=== PATIENT | male | born 1955 | race Caucasian/White ===

== ENCOUNTER 2025-01-26 13:23 | Outpatient (CLI) | payer MEDICARE, OTHER ==
[2025-01-26 14:42] LABS: INR 1.14 (0.91-1.10)
[2025-01-26 14:50] LABS: ASPARTATE AMINOTRANSFERASE 24.0 U/L (15-37); CALCIUM, SERUM 8.7 mg/dL (8.5-10.1); CREATININE 1.1 mg/dL (0.6-1.3); SODIUM SERUM 138.0 mmol/L (136-145); TOTAL PROTEIN, SERUM 7.5 g/dL (6.4-8.2); UREA NITROGEN, BLOOD 19.0 mg/dL (7-18)
[2025-01-26 14:55] LABS: PLATELET COUNT (AUTO) 227 K/uL (150-450); RED BLOOD CELL COUNT(AUTO) 5.18 MIL/uL (4.5-6.0); RED CELL DISTRIBUTION WIDTH 14.5 % (11.5-15.0); WHITE BLOOD COUNT (AUTO) 8.0 K/uL (4.3-11.0)
== END 2025-01-26 23:59 | disposition home or self-care (01) ==
LOC: LAB 13:23
PROVIDERS: ATTEND Internal Medicine Interventional Cardiology
DX: Z01.818 Encounter for other preprocedural examination (principal); I10 Essential (primary) hypertension; R53.83 Other fatigue; D68.9 Coagulation defect, unspecified; Z96.611 Presence of right artificial shoulder joint
CPT/HCPCS: 36415; 71046; 80053-TC; 85025-TC; 85610-TC; 85730-TC

== ENCOUNTER 2025-02-21 08:32 | Inpatient (IN) | payer MEDICARE, OTHER ==
[~2025-02-21] VITALS: Ht 165.1 cm; Wt 72.6 kg
[2025-02-21] MEDS ORDERED: FAMOTIDINE/PF INJ 20 MG/2 ML VIAL IV ONE (10:34)
[2025-02-21] MEDS ORDERED: ROCURONIUM BROMIDE 50 MG/5 ML ONE (10:34)
[2025-02-21] MEDS ORDERED: OXYMETAZOLINE HCL NASAL SPRAY 30 ML BOTTLE NS ONE (10:34)
[2025-02-21] MEDS ORDERED: FENTANYL PF 100MCG/2ML AMPUL ONE (10:34)
[2025-02-21] MEDS ORDERED: SUGAMMADEX SODIUM 200 MG/2 ML VIAL IV ONE (10:34)
[2025-02-21] MEDS ORDERED: GENTAMICIN 80 MG/2 ML VIAL ONE (10:38)
[2025-02-21] MEDS ORDERED: ANESTHESIA TRAY IN PYXIS 1 EA TRAY MC ONE (10:38)
[2025-02-21] MEDS ORDERED: POLYMYXIN B SULFATE 500,000 UNITS ONE (10:38)
[2025-02-21] MEDS ORDERED: dexaMETHasone SOD PHOSPHATE 1 ML ONE (10:39)
[2025-02-21] MEDS ORDERED: VANCOMYCIN 1 GM VIAL ONE (10:39)
[2025-02-21] MEDS ORDERED: CEFAZOLIN 1 GM ONE (10:39)
[2025-02-21] MEDS ORDERED: LIDOCAINE 2%-EPI 1:100,000 30 ML VIAL ONE (10:39)
[2025-02-21] MEDS ORDERED: BUPIVACAINE 0.5 % PF 150 MG/30 ML VIAL ONE (10:39)
[2025-02-21] MEDS: PIPERACILLIN /TAZOBACTAM 3.375 G in IV D5W 50 ML IV ONE (12:00)
[2025-02-21 16:00] VITALS: BP 119/71; TEMP 97.3; O2SAT 95
[2025-02-21] MEDS ORDERED: BACL10TA PO (16:29)
[2025-02-21] MEDS ORDERED: TAMS-12 PO (16:29)
[2025-02-21] MEDS ORDERED: ATOR10TA PO (16:29)
[2025-02-21] MEDS ORDERED: FINA5TAB3 PO (16:29)
[2025-02-21] MEDS ORDERED: NAPR-1192 PO (16:29)
[2025-02-21] MEDS ORDERED: LISI10TA29 PO (16:29)
[2025-02-21] MEDS ORDERED: INSU100I26 SQ (16:29)
[2025-02-21] MEDS ORDERED: METF-442 PO (16:29)
[2025-02-21] MEDS ORDERED: ACETAMINOPHEN 325 MG TABLET PO PRN (17:00)
[2025-02-21] MEDS ORDERED: ONDANSETRON HCL/PF 4 MG/2 ML VIAL IVP PRN (17:00)
[2025-02-21] MEDS ORDERED: HYDROCODONE/APAP 5/325MG TABLET PO PRN (17:00)
[2025-02-21] MEDS ORDERED: MAGNESIUM HYDROXIDE 30 ML UDC PO PRN (17:00)
[2025-02-21] MEDS ORDERED: DEXTROSE 50%-WATER 50 ML DISP.SYRIN IV PRN (17:00)
[2025-02-21] MEDS ORDERED: HYDROMORPHONE 1 MG/1 ML DISP.SYRIN IV PRN (17:30)
[2025-02-21] MEDS: IV NS 0.9% 1,000 ML IV PRN (17:45)
[2025-02-21] MEDS: BLOOD SUGAR DIAGNOSTIC 1 EACH STRIP IN SCH (17:52)
[2025-02-21] MEDS: INSULIN REGULAR, HUMAN 100 UNIT/ML 3 ML VIAL SQ PRN (17:53)
[2025-02-21 18:42] VITALS: BP 104/75; TEMP 97.9; O2SAT 99
[2025-02-21] MEDS: ZOSYN IVPB 3.375 G in IV D5W 50ml IV SCH (19:21)
[2025-02-21 20:00] VITALS: BP 103/67; TEMP 97.5; O2SAT 95
[2025-02-21] MEDS: VANCOMYCIN 1 GM in IV D5W 250ml IV SCH (22:47)
[2025-02-22 07:30] LABS: PLATELET COUNT (AUTO) 364 K/uL (150-450); RED BLOOD CELL COUNT(AUTO) 4.87 MIL/uL (4.5-6.0); RED CELL DISTRIBUTION WIDTH 14.6 % (11.5-15.0); WHITE BLOOD COUNT (AUTO) 16.5 K/uL (4.3-11.0)
[2025-02-22 08:12] LABS: CREATININE 1.7 mg/dL (0.6-1.3); PHOSPHORUS 4.6 mg/dL (2.5-4.9); SODIUM SERUM 138.0 mmol/L (136-145); UREA NITROGEN, BLOOD 34.0 mg/dL (7-18)
[2025-02-22] MEDS ORDERED: IV LR 1000 ML 1,000 ML IV PRN (08:30)
[2025-02-22 08:40] LABS: CALCIUM, SERUM 8.2 mg/dL (8.5-10.1)
[2025-02-22] MEDS ORDERED: LISINOPRIL (10MG) 10 MG TABLET PO SCH (09:00)
[2025-02-22] MEDS ORDERED: METFORMIN 500 MG TABLET PO SCH (09:00)
[2025-02-22] MEDS: FINASTERIDE (5 MG) 5 MG TABLET PO SCH (09:26)
[2025-02-22] MEDS: TAMSULOSIN 0.4 MG CAP.SR.24H PO SCH (09:27)
[2025-02-22] MEDS: CHLORHEXIDINE GLUCONATE 15 ML UDC MM SCH (09:28)
[2025-02-22] MEDS: ATORVASTATIN 10 MG TABLET PO SCH (09:28)
[2025-02-22] MEDS: PANTOPRAZOLE 40 MG TABLET.DR PO SCH (09:29)
== END 2025-02-22 12:11 | disposition home or self-care (01) | DRG 141 ==
LOC: DS 08:32 → MED 15:53
PROVIDERS: ADMIT Nurse Practitioner Family; ATTEND Nurse Practitioner Family
PROC: 0NST04Z Reposition Right Mandible with Internal Fixation Device, Open Approach (ICD-10-PCS; 2025-02-21)
PROC: 0NSR04Z Reposition Maxilla with Internal Fixation Device, Open Approach (ICD-10-PCS; 2025-02-21)
PROC: 0NUV07Z Supplement Left Mandible with Autologous Tissue Substitute, Open Approach (ICD-10-PCS; 2025-02-21)
PROC: 0JB10ZZ Excision of Face Subcutaneous Tissue and Fascia, Open Approach (ICD-10-PCS; 2025-02-21)
PROC: 0NUT07Z Supplement Right Mandible with Autologous Tissue Substitute, Open Approach (ICD-10-PCS; 2025-02-21)
PROC: 0NBR0ZZ Excision of Maxilla, Open Approach (ICD-10-PCS; 2025-02-21)
PROC: 0N5T0ZZ Destruction of Right Mandible, Open Approach (ICD-10-PCS; 2025-02-21)
PROC: 0N5V0ZZ Destruction of Left Mandible, Open Approach (ICD-10-PCS; 2025-02-21)
PROC: 0KX10ZZ Transfer Facial Muscle, Open Approach (ICD-10-PCS; 2025-02-21)
PROC: 0NSV04Z Reposition Left Mandible with Internal Fixation Device, Open Approach (ICD-10-PCS; principal; 2025-02-21 11:45)
DX: S02.40DA Maxillary fracture, left side, initial encounter for closed fracture (principal); M87.9 Osteonecrosis, unspecified; D16.4 Benign neoplasm of bones of skull and face; E11.9 Type 2 diabetes mellitus without complications; J32.0 Chronic maxillary sinusitis; D16.5 Benign neoplasm of lower jaw bone; S02.609A Fracture of mandible, unspecified, initial encounter for closed fracture; S02.40CA Maxillary fracture, right side, initial encounter for closed fracture; I10 Essential (primary) hypertension; J32.9 Chronic sinusitis, unspecified; M27.2 Inflammatory conditions of jaws; X58.XXXA Exposure to other specified factors, initial encounter; Y92.9 Unspecified place or not applicable; Z85.828 Personal history of other malignant neoplasm of skin; N40.0 Benign prostatic hyperplasia without lower urinary tract symptoms; N28.9 Disorder of kidney and ureter, unspecified; E78.5 Hyperlipidemia, unspecified; Z98.890 Other specified postprocedural states; Z79.85 Long-term (current) use of injectable non-insulin antidiabetic drugs; Z79.84 Long term (current) use of oral hypoglycemic drugs; M60.9 Myositis, unspecified; M89.9 Disorder of bone, unspecified; M84.9 Disorder of continuity of bone, unspecified; K13.79 Other lesions of oral mucosa; K13.21 Leukoplakia of oral mucosa, including tongue
CPT/HCPCS: 36415; 80048-TC; 82962-TC; 83735-TC; 84100-TC; 85025-TC; 87081-TC; 88305-TC; 88311-TC; A4223; A4338; C1713; G0378; J0690; J1100; J1308; J1580; J1815; J2405; J2543; J2704; J3010; J3373; J3490; J7030; J7060; J7120